=== PATIENT | female | born 1935 | race Caucasian/White ===

== ENCOUNTER 2018-02-03 07:45 | Emergency (ER) | payer MEDICARE, BC ==
[2018-02-03] MEDS ORDERED: 0.9 % SODIUM CHLORIDE 1,000 ML BAG IV ONE (07:52)
[2018-02-03] MEDS ORDERED: ACETAMINOPHEN 1,000 MG/100 ML BTL IVPB ONE (07:52)
[2018-02-03 08:03] LABS: BASO % 0.4 % (0-6); EOS % 0.2 % (0-6); GRAN % 64.8 % (47-80); HEMATOCRIT 38.4 % (35.0-47.0); HEMOGLOBIN 12.2 gm/dl (11.6-16.0); LYMPH % 24.9 % (16-45); MEAN CELL VOLUME 79.3 fl (81-97); MEAN CORPUSCULAR HEMOGLOBIN 25.2 pg (27-33); MEAN CORPUSCULAR HGB CONC 31.8 g/dl (32-36); MEAN PLATELET VOLUME 8.4 fl (7.4-10.4); MONO % 9.7 % (0-9); PLATELET COUNT 378 K/uL (130-400); RED BLOOD COUNT 4.84 M/uL (3.80-5.40); RED CELL DISTRIBUTION WIDTH 15.4 % (11.5-14.5); WHITE BLOOD COUNT W/O DIFF 8.2 K/uL (4.2-12.2)
--- NOTE | 2018-02-03 08:04 | Emergency Department Record ---
History of Present Illness - General Chief Complaint: Abdominal Pain Stated Complaint: RIGHT LOWER ABD PAIN Time Seen by Provider: 02/03/18 07:51 Source: Patient, Family Mode of Arrival: Ambulatory Limitations: No limitations - History of Present Illness Initial Comments: 83 yo female presents with right sided abdominal pain. The pain started on Saturday. The pain is sharp from the right flank, right upper abdomen to the right lower abdomen. It is not associated with any fever, chills, nausea, vomiting or diarrhea. No rash. No association with food. The pain comes and goes. There per periods of time over the weekend without any pain. The pain has been persistent this morning. She has had her appendix removed. No history of renal or gall stones. MD Complaint: Abdominal pain Onset/Timin -: Days(s) Location: R Flank, RLQ Radiation: Back Migration to: RUQ Severity: Moderate Severity scale (1-10): 8 Quality: Sharp Consistency: Intermittent Improves With: Nothing Worsens With: Nothing Associated Symptoms: Denies other symptoms - Related Data Home Medications Medication Instructions Recorded Confirmed Last Taken Aspirin 81 mg PO DAILY 02/03/18 02/03/18 Unknown Allergies Allergy/AdvReac Type Severity Reaction Status Date / Time No Known Allergies Allergy no Unverified 02/03/18 07:52 allergies Travel Screening - Travel/Exposure Within Last 30 Days Have you traveled within the last 30 days?: No Review of Systems Constitutional: Denies: Chills, Fever, Malaise Eyes: Denies: Vision change ENT: Denies: Congestion, Throat pain Respiratory: Denies: Cough, Dyspnea Cardiovascular: Denies: Chest pain Endocrine: Denies: Fatigue Gastrointestinal: Reports: Abdominal pain. Denies: Diarrhea, Nausea, Vomiting Genitourinary: Denies: Dysuria, Frequency, Hematuria, Urgency Musculoskeletal: Reports: Back pain. Denies: Arthralgia, Myalgia, Neck pain Skin: Denies: Bruising, Change in color, Rash Neurological: Denies: Headache Psychiatric: Denies: Anxiety Hematological/Lymphatic: Denies: Easy bleeding, Easy bruising Past Medical History - SOCIAL HISTORY Smoking Status: Former smoker Alcohol Use: None Drug Use: None - RESPIRATORY Hx Respiratory Disorders: No - CARDIOVASCULAR Hx Cardio Disorders: Yes Hx Heart Attack: Yes - NEURO Hx Neuro Disorders: No - GI Hx GI Disorders: No - Comment:: kidney infection - ENDOCRINE Hx Endocrine Disorders: No - MUSCULOSKELETAL Hx Musculoskeletal Disorders: No - PSYCH Hx Psych Problems: No - HEMATOLOGY/ONCOLOGY Hx Hematology/Oncology Disorders: No Family Medical History Any Significant Family History?: No Physical Exam - General General Appearance: Alert, Oriented x3, Cooperative, No acute distress Limitations: No limitations - Head Head exam: Atraumatic, Normal inspection - Eye Eye exam: Normal appearance - ENT ENT exam: Normal exam Ear exam: Normal external inspection Nasal Exam: Normal inspection Mouth exam: Normal external inspection - Neck Neck exam: Normal inspection - Respiratory Respiratory exam: Normal lung sounds bilaterally. negative: Respiratory distress - Cardiovascular Cardiovascular Exam: Regular rate, Normal rhythm, Normal heart sounds - GI/Abdominal GI/Abdominal exam: Soft, Normal bowel sounds, Tenderness (tender right flank, RUQ, RLQ but very soft abdomen, no rash). negative: Distended, Guarding, Hyperactive bowel sounds, Pulsatile mass, Rebound, Rigid - Rectal Rectal exam: Deferred - exam: Deferred - Extremities Extremities exam: Normal inspection, Full ROM, Normal capillary refill. negative: Pedal edema, Tenderness - Back Back exam: Reports: CVA tenderness (R), Full ROM (She has full ROM but some reproduced pain with movement.), Paraspinal tenderness. Denies: CVA tenderness (L) - Neurological Neurological exam: Alert, Normal gait, Oriented X3 - Psychiatric Psychiatric exam: Normal affect, Normal mood - Skin Skin exam: Dry, Intact, Normal color, Warm Course Vital Signs 02/03/18 07:48 Temperature 97.9 F Pulse Rate 95 H Respiratory 20 Rate Blood Pressure 155/88 Pulse Ox 96 - Reevaluation(s) Reevaluation #1: Vitals reviewed Well appearing 83 yo female with intermittent right side pain UA, Labs,and CT ordered. 02/03/18 08:03 02/03/18 08:12 The CBC was reviewed. No acute changes. No acute changes on the CMP,Lipase. 02/03/18 08:24 02/03/18 08:32 The EMR was reviewed. She has an ill defined RLL opacification that was present in 2013. This was initially seen on a CT of the abdomen then on a follow up chest CT. At that point she in discussion with her doctor decided not to pursue it further. She does not have a formal diagnosis. 02/03/18 08:46 The UA is negative. 02/03/18 08:51 No acute process in the abdomen. The chest mass from 4 years ago does appear to have progressed. The patient was informed. She had seen an oncologist in the past. A chest XR will be performed and her imaging placed on a disc for outpatient follow up of the right lung mass. 02/03/18 09:[address] Kay the patient's PCP. He will assist in the outpatient work up of the increased size of the right lower lung mass. Medical Decision Making - Lab Data Result diagrams: 02/03/18 07:55 02/03/18 07:55 Disposition Disposition: Discharge Clinical Impression: Mass of right lung Disposition: Home, Self-Care Condition: (1) Good Instructions: Abdominal Pain (ED) Additional Instructions: Call your doctor and your prior oncologist to follow up the right lung mass that has enlarged since 2013. The lung mass was again seen on today's CT of the abdomen and chest X-ray You were given a copy of the scans and x-rays on a disc. Take these with your to your follow up doctor's appointments Return or be seen if worse, fever, cough, vomiting, short of breath. Forms: Patient Portal Access Time of Disposition: 09:26 Quality - Quality Measures Quality Measures: N/A - Blood Pressure Screening Does Patient Have Any of the Following: Active Dx of HTN Blood Pressure Classification: Pre-Hypertensive BP Reading Systolic Measurement: 155 Diastolic Measurement: 88 Screening for High Blood Pressure: Patient Exclusion, Hx of HTN [G9744]
[2018-02-03 08:15] LABS: BLOOD UREA NITROGEN 10 mg/dL (8-23); CREATININE 0.5 mg/dL (0.5-0.9); EST GLOMERULAR FILTRATION RATE > 60 mL/min
[2018-02-03 08:16] LABS: TOTAL PROTEIN 7.5 g/dL (6.6-8.7)
[2018-02-03 08:18] LABS: GLUCOSE,RANDOM 103 mg/dL (74-109)
[2018-02-03 08:21] LABS: ALB/GLOB RATIO 0.9 (1.1-1.8); ALBUMIN 3.5 g/dL (4.0-5.0); ALKALINE PHOSPHATASE 75 U/L (35-104); ALT/SGPT 11 U/L (<33); AST/SGOT 16 U/L (10.0-35.0); LIPASE 32 U/L (13-60)
[2018-02-03 08:30] LABS: URINE APPEARANCE CLEAR; URINE BILIRUBIN NEGATIVE (NEGATIVE); URINE BLOOD NEGATIVE (NEGATIVE); URINE COLOR YELLOW; URINE GLUCOSE (UA) NEGATIVE (NEGATIVE); URINE KETONE NEGATIVE (NEGATIVE); URINE NITRITE NEGATIVE (NEGATIVE); URINE PROTEIN NEGATIVE (NEGATIVE); URINE UROBILINOGEN 0.2 E.U./dL (0.20 - 1.00)
[2018-02-03 08:39] LABS: URINE LEUKOCYTE ESTERASE TRACE (NEGATIVE); URINE RBC 0 - 2 (NONE SEEN); URINE TRANSITIONAL EPI CELLS 0 - 2 /hpf; URINE WBC 0 - 2 (0-2/hpf)
--- NOTE | 2018-02-03 13:58 | CT SCAN REPORT ---
EXAM: CT OF THE ABDOMEN AND PELVIS WITHOUT CONTRAST HISTORY: RIGHT FLANK, RIGHT UPPER QUADRANT AND RIGHT LOWER QUADRANT PAIN FOR THREE DAYS. PRIOR APPENDECTOMY. TECHNIQUE: Axial CT scan of the abdomen and pelvis was performed without oral or IV contrast. Comparison: CT of the abdomen and pelvis 03/11/14. FINDINGS: Upper images demonstrate extensive progression of opacification in the right lower lobe compared with that noted on 03/11/14. This opacification is nonspecific and poorly evaluated without IV contrast and also incompletely evaluated as it is present on the upper most scan obtained through the lung bases and presumably extends further cephalad in the chest. Follow-up conventional two view chest x-ray is suggested for initial further evaluation. Minor patch of infiltrate in the right middle lobe and some honeycombing in the left base also present previously. No calcified gallstones are seen within the gallbladder. No intrarenal calculi seen in either kidney. The patient is of thin body habitus with resulting lack of mesenteric and retroperitoneal adipose tissue with resulting "crowding" of the viscera in the abdomen and pelvis. This in conjunction with the lack of oral and IV contrast considerably limits evaluation of the bowel and viscera. The ureters are extremely poorly seen with no obvious obstructing ureteral calculus on either side identified. There is some coarse calcification associated with the uterus also present previously likely representing some mild leiomyomatous involvement. The 1.5 cm presumed hepatic cyst noted previously is again seen today and appears unchanged in size, incompletely evaluated without IV contrast today, but presumably a stable cyst. No definite solid hepatic mass identified. No definite splenic, adrenal, renal, or pancreatic mass identified. Fairly heavy calcification of the aortoiliac arterial system, but no abdominal aortic aneurysm evident. Moderate stool throughout the colon and clinical correlation as to constipation suggested. The appendix is not clearly seen consistent with the surgical history of appendectomy. Advanced degenerative change in the lumbar spine with moderate anterior subluxation of L4 on L5 which appears to be on the basis of extensive facet joint arthropathy. Mild anterior subluxation of L3 on L4 and of L2 on L3 also apparently on the basis os extensive facet joint arthropathy. There do appear to be a couple mildly enlarged lymph nodes adjacent to the right side of the heart on the upper images which have progressed from the prior study as well. These are nonspecific although metastatic disease cannot be excluded. IMPRESSION: 1. MARKED PROGRESSIVE OPACIFICATION IN THE VISUALIZED RIGHT LOWER LOBE COMPARED WITH 03/11/14. THIS IS NONSPECIFIC, BUT MALIGNANCY CANNOT BE EXCLUDED. FOLLOW-UP TWO VIEW CHEST X-RAY IS SUGGESTED. THERE DOES APPEAR TO BE SOME MILD ADENOPATHY ALONG THE RIGHT SIDE OF THE HEART WHICH HAS PROGRESSED FROM THE PRIOR STUDY WELL. 2. SOME HONEYCOMBING IN THE LEFT LUNG BASE, LIKELY WITH UNDERLYING COPD. 3. NO DEFINITE URINARY TRACT CALCULI OR HYDRONEPHROSIS EVIDENT. THERE IS A SOMEWHAT LOW LYING RIGHT KIDNEY LARGELY WITHIN THE PELVIS. 4. POSTOP APPENDECTOMY. 5. EXTENSIVE DEGENERATIVE CHANGES IN THE SPINE. 6. THIS STUDY IS SEVERE LIMITED BY A COMBINATION OF LACK OF ORAL AND IV CONTRAST AND THIN BODY HABITUS WITH LITTLE ADIPOSE TISSUE TO ACT A NATURAL CONTRAST AGENT. 7. STABLE SMALL HEPATIC CYST. 8. MODERATE STOOL THROUGHOUT THE COLON SUGGESTING CONSTIPATION. JOB NUMBER: [id number] [facility]
--- NOTE | 2018-02-03 14:18 | RADIOLOGY REPORT ---
EXAM: CHEST, TWO VIEWS HISTORY: CHEST MASS RIGHT LOWER LOBE ON ABDOMEN CT PERFORMED EARLIER TODAY, CHEST X-RAY REQUESTED TO MORE FULLY EVALUATE. TECHNIQUE: PA and lateral views of the chest were obtained. Comparison: Two view chest 06/28/17. FINDINGS: The heart size is normal. Mild torsion of the aorta. There has been progressive opacity in the right lower lobe compared to the prior chest x- ray. This corresponds to the quite prominent density in the right lower lobe on the abdomen CT from today. Findings are nonspecific, but with the progressive appearance, malignancy cannot be excluded. There appears to be a small right pleural fluid collection or pleural thickening in the right base today as well. The lungs overall appear hyperinflated consistent with underlying emphysema. Some apical pleural thickening bilaterally. Hypertrophic spurring in the spine. IMPRESSION: 1. PROGRESSIVE OPACITY IN THE RIGHT LOWER LOBE WORRISOME FOR PROGRESSIVE MALIGNANCY. 2. UNDERLYING COPD. 3. SMALL AMOUNT OF NEW RIGHT PLEURAL FLUID OR PLEURAL THICKENING AT THE RIGHT BASE WELL COMPARED WITH THE PRIOR STUDY. JOB NUMBER: [id number] [facility]
== END 2018-02-03 09:39 | disposition home or self-care (01) ==
LOC: ER 07:45
DX: R91.8 Other nonspecific abnormal finding of lung field (principal); R10.31 Right lower quadrant pain; R10.11 Right upper quadrant pain; I10 Essential (primary) hypertension; I25.2 Old myocardial infarction; Z87.891 Personal history of nicotine dependence
CPT/HCPCS: 71046; 74176; 80053; 81001; 83690; 85025; 96361; 96365; 99284; J7030

== ENCOUNTER 2018-02-05 07:07 | Observation (INO) | payer MEDICARE, BC ==
[2018-02-05] MEDS ORDERED: 0.9 % SODIUM CHLORIDE 1,000 ML BAG IV ONE (07:29)
[2018-02-05] MEDS ORDERED: ACETAMINOPHEN 1,000 MG/100 ML BTL IVPB ONE (07:44)
--- NOTE | 2018-02-05 07:55 | Emergency Department Record ---
History of Present Illness - General Chief complaint: Weakness Stated complaint: WEAKNESS Time Seen by Provider: 02/05/18 07:29 Source: Patient, RN notes reviewed Mode of Arrival: EMS - History of Present Illness Initial comments: patient fell down at home and granddaughter heard her fall and she was awake when she got to her and she was weak and patient denies headache and denies chest pain and dyspnea and she is complaining about right upper quad pain and right rib cage pain. Patient and family know about the lung mass and patient decided not to do cancer treatment about 10 years ago and she does not want resuscitation. MD Complaint: Generalized weakness -: Hour(s) Location: Generalized Severity scale (1-10): 9 Associated Symptoms: Nausea/vomiting - [place] Coma Scale Eye Response: (4) Open spontaneously Motor Response: (6) Obeys commands Verbal Response: (5) Oriented [place] Total: 15 - Related Data Allergies Allergy/AdvReac Type Severity Reaction Status Date / Time No Known Allergies Allergy no Verified 02/05/18 07:16 allergies Travel Screening - Travel/Exposure Within Last 30 Days Have you traveled within the last 30 days?: No - Travel Symptoms Symptom Screening: None Review of Systems Constitutional: Reports: Weakness Eyes: Reports: As per HPI. Denies: Eye discharge, Eye pain, Photophobia, Vision change ENT: Reports: As per HPI. Denies: Congestion, Dental pain, Ear pain, Epistaxis , Hearing loss, Throat pain Respiratory: Reports: As per HPI. Denies: Cough, Dyspnea, Hemoptysis, Stridor, Wheezes Cardiovascular: Reports: Other (chest pain right side) Endocrine: Reports: As per HPI. Denies: Fatigue, Heat or cold intolerance, Polydipsia, Polyuria Gastrointestinal: Reports: Abdominal pain Genitourinary: Reports: As per HPI. Denies: Abnormal menses, Discharge, Dyspareunia, Dysuria, Frequency, Hematuria, Incontinence, Retention, Urgency Musculoskeletal: Reports: As per HPI. Denies: Arthralgia, Back pain, Gout, Joint swelling, Myalgia, Neck pain Skin: Reports: As per HPI. Denies: Bruising, Change in color, Change in hair/ nails, Lesions, Pruritus, Rash Neurological: Reports: As per HPI. Denies: Abnormal gait, Confusion, Headache, Numbness, Paresthesias, Seizure, Tingling, Tremors, Vertigo, Weakness Psychiatric: Reports: As per HPI. Denies: Anxiety, Auditory hallucinations, Depression, Homicidal thoughts, Suicidal thoughts, Visual hallucinations Hematological/Lymphatic: Reports: As per HPI. Denies: Anemia, Blood Clots, Easy bleeding, Easy bruising, Swollen glands Past Medical History - SOCIAL HISTORY Smoking Status: Former smoker - RESPIRATORY Hx Respiratory Disorders: No - CARDIOVASCULAR Hx Cardio Disorders: Yes Hx Heart Attack: Yes - NEURO Hx Neuro Disorders: No - GI Hx GI Disorders: No - Hx Genitourinary Disorders: Yes Comment:: kidney infection - ENDOCRINE Hx Endocrine Disorders: No - MUSCULOSKELETAL Hx Musculoskeletal Disorders: No - PSYCH Hx Psych Problems: No - HEMATOLOGY/ONCOLOGY Hx Hematology/Oncology Disorders: No Family Medical History Any Significant Family History?: No Physical Exam - General General Appearance: Cooperative, Moderate distress - Head Head exam: Normal inspection - Eye Eye exam: Normal appearance, PERRL - ENT ENT exam: Normal exam, Mucous membranes moist, Normal external ear exam, Normal orophraynx, TM's normal bilaterally Ear exam: Normal external inspection. negative: External canal tenderness Nasal Exam: Normal inspection. negative: Discharge, Sinus tenderness Mouth exam: Normal external inspection, Tongue normal Teeth exam: Normal inspection. negative: Dental caries Throat exam: Normal inspection. negative: Tonsillar erythema, Tonsillar exudate - Neck Neck exam: Normal inspection, Full ROM. negative: Tenderness - Respiratory Respiratory exam: Normal lung sounds bilaterally. negative: Respiratory distress - Cardiovascular Cardiovascular Exam: Regular rate, Normal rhythm, Normal heart sounds - GI/Abdominal GI/Abdominal exam: Tenderness (right upper quad pain ) - Extremities Extremities exam: Normal inspection, Full ROM, Normal capillary refill. negative: Tenderness - Back Back exam: Reports: Normal inspection, Full ROM. 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 02/05/18 10:43 08/08/18 11:11 Reevaluation #2: family didn't want me to do the inpatient care and Dr. Jose contacted and he came and evaluated the patient and will admit the patient. Discussed hospise care and patient and family thinking about options. 02/05/18 11:54 02/05/18 11:57 Medical Decision Making - Lab Data Result diagrams: 02/05/18 07:40 02/05/18 07:40 Disposition Clinical Impression: Mass of right lung, Dehydration Hypotension Qualifiers: Hypotension type: hypotension due to hypovolemia Qualified Code(s): I95.89 - Other hypotension GI bleed Qualifiers: GI bleed type/associated pathology: unspecified gastrointestinal hemorrhage type Qualified Code(s): K92.2 - Gastrointestinal hemorrhage, unspecified Decision to Admit: Admit from ER Condition: (4) Poor Forms: Patient Portal Access Time of Disposition: 11:54 Quality - Quality Measures Quality Measures: N/A - Blood Pressure Screening Does Patient Have Any of the Following: No Blood Pressure Classification: Normal BP Reading Systolic Measurement: 74 Diastolic Measurement: 51 Screening for High Blood Pressure: < Normal BP, F/U Not Required > [G8783]
[2018-02-05 07:56] LABS: BASO % 0.2 % (0-6); EOS % 0.3 % (0-6); GRAN % 69.4 % (47-80); HEMATOCRIT 49.8 % (35.0-47.0); HEMOGLOBIN 16.5 gm/dl (11.6-16.0); LYMPH % 27.3 % (16-45); MEAN CELL VOLUME 77.3 fl (81-97); MEAN CORPUSCULAR HEMOGLOBIN 25.6 pg (27-33); MEAN CORPUSCULAR HGB CONC 33.1 g/dl (32-36); MEAN PLATELET VOLUME 9.8 fl (7.4-10.4); MONO % 2.8 % (0-9); PLATELET COUNT 401 K/uL (130-400); RED BLOOD COUNT 6.44 M/uL (3.80-5.40); RED CELL DISTRIBUTION WIDTH 17.6 % (11.5-14.5); WHITE BLOOD COUNT W/O DIFF 14.4 K/uL (4.2-12.2)
[2018-02-05 08:06] LABS: INR 1.1; PARTIAL THROMBOPLASTIN TIME 22.9 SECONDS (24.5-39.1); PROTHROMBIN TIME (PATIENT) 11.9 SECONDS (9.5-12.1)
[2018-02-05 09:43] LABS: BLOOD UREA NITROGEN 14 mg/dL (8-23); EST GLOMERULAR FILTRATION RATE 56 mL/min; TOTAL PROTEIN 6.4 g/dL (6.6-8.7)
[2018-02-05 09:45] LABS: GLUCOSE,RANDOM 200 mg/dL (74-109)
[2018-02-05 09:48] LABS: ALB/GLOB RATIO 0.7 (1.1-1.8); ALBUMIN 2.7 g/dL (4.0-5.0); ALKALINE PHOSPHATASE 75 U/L (35-104); ALT/SGPT 15 U/L (<33); AST/SGOT 34 U/L (10.0-35.0); LIPASE 96 U/L (13-60)
[2018-02-05 10:23] LABS: URINE APPEARANCE SL CLOUDY; URINE BILIRUBIN MODERATE (NEGATIVE); URINE BLOOD TRACE-I (NEGATIVE); URINE KETONE TRACE (NEGATIVE); URINE LEUKOCYTE ESTERASE TRACE (NEGATIVE)
[2018-02-05 10:40] LABS: URINE COLOR DARK YELLOW; URINE NITRITE NEGATIVE (NEGATIVE); URINE PROTEIN 300 mg/dL (NEGATIVE)
[2018-02-05 10:41] LABS: URINE BACTERIA FEW; URINE RBC 0 - 2 (NONE SEEN); URINE SQUAMOUS EPITHELIAL CELL 0 - 2 /hpf; URINE WBC 0 - 2 (0-2/hpf)
[2018-02-05] MEDS ORDERED: 0.9 % SODIUM CHLORIDE 500ML 500 ML IV SCH (10:45)
[2018-02-05] MEDS ORDERED: PANTOPRAZOLE SODIUM IV 40 MG VIAL IVP ONE (11:53)
[2018-02-05] MEDS ORDERED: PANTOPRAZOLE SODIUM IV 40 MG VIAL IVP SCH (12:15)
[2018-02-05] MEDS: MVI, ADULT NO.4 WITH VIT K 10 ML, THIAMINE HCL IV 100 MG in 0.9 % SODIUM CHLORIDE 1000M... IV SCH ×6 (12:36→21:01)
--- NOTE | 2018-02-05 13:03 | History & Physical ---
<Darren Pope - Last Filed: 02/05/18 13:51> History of Present Illness - Date of Service Date of Service for History & Physical: 02/05/18 H&P Meds/Allergies - Allergies Allergies: Allergies Allergy/AdvReac Type Severity Reaction Status Date / Time No Known Allergies Allergy no Verified 02/05/18 07:16 allergies - Active Medications Active Medications: Current Medications Sodium Chloride () 500 mls @ 0 mls/hr IV .Q0M [facility] Multivitamins/Minerals 10 ml/Thiamine HCl 100 mg/ Sodium Chloride 1,011 mls @ 125 mls/hr IV .Q8H6M [facility] Last Admin: 02/05/18 12:36 Dose: 125 mls/hr Pantoprazole Sodium (Protonix Iv) 40 mg IVP Q12HR [facility] Physical Exam - Vital Signs Vital Signs: Vital Signs - Last 24 Hrs Temp Pulse Pulse Resp BP BP Pulse Ox 02/05/18 11:50 92 H 18 101/70 98 02/05/18 11:42 90 20 98/64 98 02/05/18 11:20 91 H 18 106/69 97 02/05/18 10:50 84 18 100/60 97 02/05/18 10:30 78 18 96/65 98 02/05/18 10:10 79 18 108/57 98 02/05/18 07:18 97.2 F L 106 H 102 H 24 74/51 86/48 96 Results - Labs Result Diagrams: 02/05/18 07:40 02/05/18 07:40 Labs Last 24 Hours: Laboratory Results - last 24 hr 02/05/18 02/05/18 02/05/18 07:40 07:40 07:40 WBC 14.4 H RBC 6.44 H Hgb 16.5 H Hct 49.8 H MCV 77.3 L MCH 25.6 L MCHC 33.1 RDW 17.6 H Plt Count 401 H MPV 9.8 Gran % 69.4 Lymphocytes % 27.3 Monocytes % 2.8 Eosinophils % 0.3 Basophils % 0.2 PT 11.9 INR 1.1 APTT 22.9 L Sodium 137 Potassium 3.5 Chloride 100 Carbon Dioxide 17.0 L Anion Gap 20.0 H BUN 14 Creatinine 1.0 H Estimated GFR 56 Random Glucose 200 H Calcium 8.7 L Magnesium Total Bilirubin 0.60 AST 34 ALT 15 Alkaline Phosphatase 75 Troponin T < 0.010 Total Protein 6.4 L Albumin 2.7 L Globulin 3.7 Albumin/Globulin Ratio 0.7 L Lipase 96 H Urine Color Urine Appearance Urine pH Ur Specific Felicity Urine Protein Urine Glucose (UA) Urine Ketones Urine Blood Urine Nitrite Urine Bilirubin Urine Urobilinogen Ur Leukocyte Esterase Urine RBC Urine WBC U Non-Squamous Epi Cells Urine Bacteria 02/05/18 02/05/18 02/05/18 07:40 07:40 10:15 WBC RBC Hgb Hct MCV MCH MCHC RDW Plt Count MPV Gran % Lymphocytes % Monocytes % Eosinophils % Basophils % PT INR APTT Sodium Potassium Chloride Carbon Dioxide Anion Gap BUN Creatinine Estimated GFR Random Glucose Calcium Magnesium 2.4 Total Bilirubin AST ALT Alkaline Phosphatase Troponin T Cancelled Total Protein Albumin Globulin Albumin/Globulin Ratio Lipase Urine Color Dark yellow Urine Appearance Sl cloudy Urine pH 6.5 Ur Specific Felicity 1.020 Urine Protein 300 mg/dl H Urine Glucose (UA) 100 mg/dl H Urine Ketones Trace H Urine Blood Trace-i Urine Nitrite Negative Urine Bilirubin Moderate H Urine Urobilinogen 2.0 H Ur Leukocyte Esterase Trace H Urine RBC 0 - 2 Urine WBC 0 - 2 U Non-Squamous Epi Cells 0 - 2 Urine Bacteria Few <MAROLN HENRY - Last Filed: 02/05/18 17:06> History of Present Illness - Date of Service Date of Service for History & Physical: 02/05/18 - History of Present Illness Admitting Diagnosis: Hypotension History of Present Illness: Mrs. Saini is a 83 y/o female who presents after falling at home. She says that she felt weak and unable to stand but denies dizziness, feeling lightheaded and or losing consciousness. The patient's grand daughter heard the fall and went to see what happened and notes that the patient was on the floor in pain but was awake and alert. She denies witnessing any convulsions and there was no loss of urinary or bowel continence. The patient did not report any injury to her head but notes right abdominal and rib cage pain. In the ED the patient was started on IV 0.9% saline for dehydration and her blood pressure rebounded. The patient is a wake, alert and oriented x 3 does not appear to be in acute distress. She is admitted for observation and home health placement or hospice if appropriate. On arrival to the ED initial workup revealed: Vitals: BP 74/51, HR 102, sats: 96%, Temp 97.2 Labs: K+ 3.5, Glucose 200, WBCs 14.4 FOBT: + for occult blood CXR: RLL opacification which has progressed from previous imaging. CT thorax: shows a RLL mass suspicious for malignancy and small pleural effusion. PCP: Dr. Kay Travel Screening - Travel/Exposure Within Last 30 Days Have you traveled within the last 30 days?: No - Travel Symptoms Symptom Screening: None Review of Systems Constitutional: Reports: Weakness Eyes: Reports: As per HPI. Denies: Eye discharge, Eye pain, Photophobia, Vision change ENT: Reports: As per HPI. Denies: Congestion, Dental pain, Ear pain, Epistaxis , Hearing loss, Throat pain Respiratory: Reports: As per HPI. Denies: Cough, Dyspnea, Hemoptysis, Stridor, Wheezes Cardiovascular: Reports: Other (chest pain right side) Endocrine: Reports: As per HPI. Denies: Fatigue, Heat or cold intolerance, Polydipsia, Polyuria Gastrointestinal: Reports: Abdominal pain Genitourinary: Reports: As per HPI. Denies: Abnormal menses, Discharge, Dyspareunia, Dysuria, Frequency, Hematuria, Incontinence, Retention, Urgency Musculoskeletal: Reports: As per HPI. Denies: Arthralgia, Back pain, Gout, Joint swelling, Myalgia, Neck pain Skin: Reports: As per HPI. Denies: Bruising, Change in color, Change in hair/ nails, Lesions, Pruritus, Rash Neurological: Reports: As per HPI. Denies: Abnormal gait, Confusion, Headache, Numbness, Paresthesias, Seizure, Tingling, Tremors, Vertigo, Weakness Psychiatric: Reports: As per HPI. Denies: Anxiety, Auditory hallucinations, Depression, Homicidal thoughts, Suicidal thoughts, Visual hallucinations Hematological/Lymphatic: Reports: As per HPI. Denies: Anemia, Blood Clots, Easy bleeding, Easy bruising, Swollen glands Past Medical History - SOCIAL HISTORY Smoking Status: Former smoker - RESPIRATORY Hx Respiratory Disorders: No - CARDIOVASCULAR Hx Cardio Disorders: Yes Hx Heart Attack: Yes - NEURO Hx Neuro Disorders: No - GI Hx GI Disorders: No - Hx Genitourinary Disorders: Yes Comment:: kidney infection - ENDOCRINE Hx Endocrine Disorders: No - MUSCULOSKELETAL Hx Musculoskeletal Disorders: No - PSYCH Hx Psych Problems: No - HEMATOLOGY/ONCOLOGY Hx Hematology/Oncology Disorders: No Family Medical History Any Significant Family History?: No H&P Meds/Allergies - Active Medications Active Medications: Current Medications Sodium Chloride () 500 mls @ 0 mls/hr IV .Q0M [facility] Multivitamins/Minerals 10 ml/Thiamine HCl 100 mg/ Sodium Chloride 1,011 mls @ 125 mls/hr IV .Q8H6M [facility] Last Admin: 02/05/18 12:36 Dose: 125 mls/hr Pantoprazole Sodium (Protonix Iv) 40 mg IVP Q12HR [facility] Physical Exam - Vital Signs Vital Signs: Vital Signs - Last 24 Hrs Temp Pulse Pulse Resp BP BP Pulse Ox 02/05/18 11:50 92 H 18 101/70 98 02/05/18 11:42 90 20 98/64 98 02/05/18 11:20 91 H 18 106/69 97 02/05/18 10:50 84 18 100/60 97 02/05/18 10:30 78 18 96/65 98 02/05/18 10:10 79 18 108/57 98 02/05/18 07:18 97.2 F L 106 H 102 H 24 74/51 86/48 96 - General General Appearance: Cooperative, Moderate distress - Head Head exam: Normal inspection - Eye Eye exam: Normal appearance, PERRL - ENT ENT exam: Normal exam, Mucous membranes moist, Normal external ear exam, Normal orophraynx, TM's normal bilaterally Ear exam: Normal external inspection. negative: External canal tenderness Nasal Exam: Normal inspection. negative: Discharge, Sinus tenderness Mouth exam: Normal external inspection, Tongue normal Teeth exam: Normal inspection. negative: Dental caries Throat exam: Normal inspection. negative: Tonsillar erythema, Tonsillar exudate - Neck Neck exam: Normal inspection, Full ROM. negative: Tenderness - Respiratory Respiratory exam: Normal lung sounds bilaterally. negative: Respiratory distress - Cardiovascular Cardiovascular Exam: Regular rate, Normal rhythm, Normal heart sounds - GI/Abdominal GI/Abdominal exam: Tenderness (right upper quad pain ) - Extremities Extremities exam: Normal inspection, Full ROM, Normal capillary refill. negative: Tenderness - Back Back exam: Reports: Normal inspection, Full ROM. Denies: Muscle spasm, Rash noted, Tenderness - Neurological Neurological exam: Alert, Normal gait, Oriented X3, Reflexes normal - Psychiatric Psychiatric exam: Normal affect, Normal mood - Skin Skin exam: Dry, Intact, Normal color, Warm Results - Labs Result Diagrams: 02/05/18 07:40 02/05/18 07:40 Labs Last 24 Hours: Laboratory Results - last 24 hr 02/05/18 02/05/18 02/05/18 07:40 07:40 07:40 WBC 14.4 H RBC 6.44 H Hgb 16.5 H Hct 49.8 H MCV 77.3 L MCH 25.6 L MCHC 33.1 RDW 17.6 H Plt Count 401 H MPV 9.8 Gran % 69.4 Lymphocytes % 27.3 Monocytes % 2.8 Eosinophils % 0.3 Basophils % 0.2 PT 11.9 INR 1.1 APTT 22.9 L Sodium 137 Potassium 3.5 Chloride 100 Carbon Dioxide 17.0 L Anion Gap 20.0 H BUN 14 Creatinine 1.0 H Estimated GFR 56 Random Glucose 200 H Calcium 8.7 L Magnesium Total Bilirubin 0.60 AST 34 ALT 15 Alkaline Phosphatase 75 Troponin T < 0.010 Total Protein 6.4 L Albumin 2.7 L Globulin 3.7 Albumin/Globulin Ratio 0.7 L Lipase 96 H Urine Color Urine Appearance Urine pH Ur Specific Felicity Urine Protein Urine Glucose (UA) Urine Ketones Urine Blood Urine Nitrite Urine Bilirubin Urine Urobilinogen Ur Leukocyte Esterase Urine RBC Urine WBC U Non-Squamous Epi Cells Urine Bacteria 02/05/18 02/05/18 02/05/18 07:40 07:40 10:15 WBC RBC Hgb Hct MCV MCH MCHC RDW Plt Count MPV Gran % Lymphocytes % Monocytes % Eosinophils % Basophils % PT INR APTT Sodium Potassium Chloride Carbon Dioxide Anion Gap BUN Creatinine Estimated GFR Random Glucose Calcium Magnesium 2.4 Total Bilirubin AST ALT Alkaline Phosphatase Troponin T Cancelled Total Protein Albumin Globulin Albumin/Globulin Ratio Lipase Urine Color Dark yellow Urine Appearance Sl cloudy Urine pH 6.5 Ur Specific Felicity 1.020 Urine Protein 300 mg/dl H Urine Glucose (UA) 100 mg/dl H Urine Ketones Trace H Urine Blood Trace-i Urine Nitrite Negative Urine Bilirubin Moderate H Urine Urobilinogen 2.0 H Ur Leukocyte Esterase Trace H Urine RBC 0 - 2 Urine WBC 0 - 2 U Non-Squamous Epi Cells 0 - 2 Urine Bacteria Few VTE H&P Assessment - Risk for VTE Risk for VTE: Yes Risk Level: Moderate Risk Assessment Date: 02/05/18 Risk Assessment Time: 13:05 VTE Orders Placed or Will Be Placed: Yes Plan - Detailed Diagnosis and Plan (1) Dehydration Current Visit: Yes Status: Acute Base Code: E86.0 - DEHYDRATION Comment: 02/05/18: - 2 liters bolus Nacl 0.9% in ED. - continuous fluids at 80 mL/hr, - repeat electrolytes in the morning. (2) Hypotension Current Visit: Yes Status: Acute Qualifiers: Hypotension type: hypotension due to hypovolemia Qualified Code(s): I95.89 - Other hypotension; E86.1 - Hypovolemia Base Code: I95.9 - HYPOTENSION, UNSPECIFIED Comment: 02/05/18: - BP 98/64 --> 101/70 --> 127/69 - hold Metoprol 25mg and Fosinopril 10mg. - continuous bp monitoring. - IV 0.9% Nacl @ 80 mL/hr (3) Mass of right lung Current Visit: Yes Status: Acute Base Code: R91.8 - OTHER NONSPECIFIC ABNORMAL FINDING OF LUNG FIELD Comment: 02/05/18: - CXR: RLL mass increased in size from previous imaging. - CT chest w/o contrast: RLL mass and small plerural effusion. - Morphine 0.5mg Q4H PRN for pain. - Patient does not want any further workup or intervention. Hospice being considered. - following for home health assessment. (4) GI bleed Current Visit: Yes Status: Acute Qualifiers: GI bleed type/associated pathology: unspecified gastrointestinal hemorrhage type Qualified Code(s): K92.2 - Gastrointestinal hemorrhage, unspecified Base Code: K92.2 - GASTROINTESTINAL HEMORRHAGE, UNSPECIFIED Comment: 02/05/18: - FOBT + for occult blood. - Hgb 14.4gm/dL - Repeat H+H with morning labs. (5) DVT prophylaxis Current Visit: Yes Status: Acute Base Code: [id number] - Comment: 02/05/18: - SCDs only, ambulate as tolerated. - no pharmacologic prophylaxis due to concern for GI bleed. (6) DNR (do not resuscitate) Current Visit: Yes Status: Acute Base Code: Z66 - DO NOT RESUSCITATE Comment: 02/05/18: - Discussed with the patient and her family and she has decided to not be resuscitated in the event of cardiac/respiratory arrest. - Disposition Likely d/c tomorrow pending home health.
[2018-02-05] MEDS ORDERED: 0.9 % SODIUM CHLORIDE 1000ML 1,000 ML IV PRN ×2 (15:19→15:40)
[2018-02-05] MEDS ORDERED: ONDANSETRON HCL IV 4 MG/2 ML VIAL IVP PRN (15:19)
[2018-02-05] MEDS ORDERED: MORPHINE SULFATE 10 MG/ML VIAL IVP PRN (16:26)
[2018-02-05] MEDS: ACETAMINOPHEN 325 MG TAB PO PRN (17:30)
[2018-02-05] MEDS: PANTOPRAZOLE SODIUM IV 40 MG VIAL IVP SCH (21:37)
[2018-02-06] MEDS: MVI, ADULT NO.4 WITH VIT K 10 ML, THIAMINE HCL IV 100 MG in 0.9 % SODIUM CHLORIDE 1000M... IV SCH ×3 (05:57)
[2018-02-06 09:03] LABS: HEMATOCRIT 38.7 % (35.0-47.0)
--- NOTE | 2018-02-06 10:22 | Discharge Summary ---
Providers Discharge Summary Date: 02/06/18 Date of admission: 02/05/18 14:35 Attending physician: MARLON JOSE Consults: Consult Orders 02/05/18 23:19 Consult - Case Management Now Comment: Reason For Exam: possible hospice Physical Exam - Vital Signs Vital Signs: Vital Signs - Last 24 Hrs Temp Pulse Pulse Pulse Resp BP BP 02/05/18 21:00 18 02/05/18 20:00 98.3 F 88 16 108/59 02/05/18 18:00 97.0 F L 79 18 114/66 02/05/18 15:20 97.4 F L 93 H 18 93/65 02/05/18 14:42 82 18 127/69 02/05/18 11:50 92 H 18 101/70 02/05/18 11:42 90 20 98/64 02/05/18 11:20 91 H 18 106/69 02/05/18 10:50 84 18 100/60 02/05/18 10:30 78 18 96/65 Pulse Ox 02/05/18 21:00 02/05/18 20:00 98 02/05/18 18:00 98 02/05/18 15:20 98 02/05/18 14:42 98 02/05/18 11:50 98 02/05/18 11:42 98 02/05/18 11:20 97 02/05/18 10:50 97 02/05/18 10:30 98 - General General Appearance: Cooperative, Moderate distress - Head Head exam: Normal inspection - Eye Eye exam: Normal appearance, PERRL - ENT ENT exam: Normal exam, Mucous membranes moist, Normal external ear exam, Normal orophraynx, TM's normal bilaterally Ear exam: Normal external inspection. negative: External canal tenderness Nasal Exam: Normal inspection. negative: Discharge, Sinus tenderness Mouth exam: Normal external inspection, Tongue normal Teeth exam: Normal inspection. negative: Dental caries Throat exam: Normal inspection. negative: Tonsillar erythema, Tonsillar exudate - Neck Neck exam: Normal inspection, Full ROM. negative: Tenderness - Respiratory Respiratory exam: Normal lung sounds bilaterally. negative: Respiratory distress - Cardiovascular Cardiovascular Exam: Regular rate, Normal rhythm, Normal heart sounds Peripheral Pulses: 3+: Radial (R), Radial (L), Dorsalis Pedis (R), Dorsalis Pedis (L) - GI/Abdominal GI/Abdominal exam: Soft, Normal bowel sounds, Tenderness (right upper quad pain ) - Extremities Extremities exam: Normal inspection, Full ROM, Normal capillary refill. negative: Tenderness - Back Back exam: Reports: Normal inspection, Full ROM. Denies: Muscle spasm, Rash noted, Tenderness - Neurological Neurological exam: Alert, Normal gait, Oriented X3, Reflexes normal - Psychiatric Psychiatric exam: Normal affect, Normal mood - Skin Skin exam: Dry, Intact, Normal color, Warm Hospitalization - Hospitalization Admission Diagnosis: Hypotension - Problem List/Discharge Diagnosis (1) Dehydration Current Visit: Yes Status: Acute Base Code: E86.0 - DEHYDRATION Comment: 02/06/18: - 2 liters bolus Nacl 0.9% in ED. - d/c fluids at 80 mL/hr, - kyperkalemia 4.6 and hypocalcemia 8.4. (2) Hypotension Current Visit: Yes Status: Acute Discharge Diagnosis: Hypotension type: hypotension due to hypovolemia Qualified Code(s): I95.89 - Other hypotension; E86.1 - Hypovolemia Base Code: I95.9 - HYPOTENSION, UNSPECIFIED Comment: 02/05/18 - 02/06/18 - BP 98/64 --> 101/70 --> 127/69--> 114/66--> 108/89 - d/c Metoprol 25mg and Fosinopril 10mg at discharge - continuous bp monitoring. - stop IV 0.9% Nacl @ 80 mL/hr (3) Mass of right lung Current Visit: Yes Status: Acute Base Code: R91.8 - OTHER NONSPECIFIC ABNORMAL FINDING OF LUNG FIELD Comment: 02/06/18: - CXR: RLL mass increased in size from previous imaging. - CT chest w/o contrast: RLL mass and small plerural effusion. - Morphine 0.5mg Q4H PRN for pain. Change to PO Austin PRN at discharge. - Patient does not want any further workup or intervention. Hospice being considered. - following for home health assessment. (4) GI bleed Current Visit: Yes Status: Acute Discharge Diagnosis: GI bleed type/associated pathology: unspecified gastrointestinal hemorrhage type Qualified Code(s): K92.2 - Gastrointestinal hemorrhage, unspecified Base Code: K92.2 - GASTROINTESTINAL HEMORRHAGE, UNSPECIFIED Comment: 02/06/18: - FOBT + for occult blood on admission. - Hgb 16.4gm/dL --> 12 today - Repeat H+H with morning labs on clinic visit next week. (5) DVT prophylaxis Current Visit: Yes Status: Acute Base Code: [id number] - Comment: 02/06/18: - SCDs only, ambulate as tolerated. - no pharmacologic prophylaxis due to concern for GI bleed. (6) DNR (do not resuscitate) Current Visit: Yes Status: Acute Base Code: Z66 - DO NOT RESUSCITATE Comment: 02/06/18: - Discussed with the patient and her family and she has decided to not be resuscitated in the event of cardiac/respiratory arrest. - Disposition D/C home today with home health care. - Hospitalization Course Hospital Course: Mrs. Saini is a 83 y/o female who presents after falling at home. She says that she felt weak and unable to stand but denies dizziness, feeling lightheaded and or losing consciousness. The patient's grand daughter heard the fall and went to see what happened and notes that the patient was on the floor in pain but was awake and alert. She denies witnessing any convulsions and there was no loss of urinary or bowel continence. The patient did not report any injury to her head but notes right abdominal and rib cage pain. In the ED the patient was started on IV 0.9% saline for dehydration and her blood pressure rebounded. The patient is a wake, alert and oriented x 3 does not appear to be in acute distress. She is admitted for observation and home health placement or hospice if appropriate. On arrival to the ED initial workup revealed: Vitals: BP 74/51, HR 102, sats: 96%, Temp 97.2 Labs: K+ 3.5, Glucose 200, WBCs 14.4 FOBT: + for occult blood CXR: RLL opacification which has progressed from previous imaging. CT thorax: shows a RLL mass suspicious for malignancy and small pleural effusion. PCP: Dr. Kay 02/06/18: The patient is alert, awake and oriented. She reports having a good nights rest and having very minimal pain. The patient has been able to ambulate to the rest room without assistance and denies lightheadedness, or shortness of breath. She does report a bloody bowel movement overnight but no abdominal pain. I had further discussions with her family this morning regarding home health and transition to hospice care. They are agreeable to home health and Social Work has been speaking to the family about plans once she is discharged. She is discharged and is opting to continue care with [facility]. Procedures: Imaging and X-Rays 02/05/18 07:37 ABDOMEN/PELVIS WO CONTRAST [CT] Stat 02/05/18 07:52 CHEST WO CONTRAST [CT] Stat Abnormal Labs: Abnormal Lab Results 02/05/18 02/05/18 02/05/18 Range/Units 07:40 07:40 07:40 WBC 14.4 H (4.2-12.2) K/uL RBC 6.44 H (3.80-5.40) M/uL Hgb 16.5 H (11.6-16.0) gm/dl Hct 49.8 H (35.0-47.0) % MCV 77.3 L (81-97) fl MCH 25.6 L (27-33) pg RDW 17.6 H (11.5-14.5) % Plt Count 401 H (130-400) K/uL APTT 22.9 L (24.5-39.1) SECONDS Potassium (3.4-4.5) mmol/L Carbon Dioxide 17.0 L (22-29) mmol/L Anion Gap 20.0 H (7-16) Creatinine 1.0 H (0.5-0.9) mg/dL Random Glucose 200 H (74-109) mg/dL Calcium 8.7 L (8.8-10.2) mg/dL Total Protein 6.4 L (6.6-8.7) g/dL Albumin 2.7 L (4.0-5.0) g/dL Albumin/Globulin Ratio 0.7 L (1.1-1.8) Lipase 96 H (13-60) U/L Urine Protein (NEGATIVE) Urine Glucose (UA) (NEGATIVE) Urine Ketones (NEGATIVE) Urine Bilirubin (NEGATIVE) Urine Urobilinogen (0.20 - 1.00) E.U./dL Ur Leukocyte Esterase (NEGATIVE) 02/05/18 02/06/18 Range/Units 10:15 06:23 WBC (4.2-12.2) K/uL RBC (3.80-5.40) M/uL Hgb (11.6-16.0) gm/dl Hct (35.0-47.0) % MCV (81-97) fl MCH (27-33) pg RDW (11.5-14.5) % Plt Count (130-400) K/uL APTT (24.5-39.1) SECONDS Potassium 4.6 H (3.4-4.5) mmol/L Carbon Dioxide (22-29) mmol/L Anion Gap (7-16) Creatinine 1.0 H (0.5-0.9) mg/dL Random Glucose 116 H (74-109) mg/dL Calcium 8.6 L (8.8-10.2) mg/dL Total Protein (6.6-8.7) g/dL Albumin (4.0-5.0) g/dL Albumin/Globulin Ratio (1.1-1.8) Lipase (13-60) U/L Urine Protein 300 mg/dl H (NEGATIVE) Urine Glucose (UA) 100 mg/dl H (NEGATIVE) Urine Ketones Trace H (NEGATIVE) Urine Bilirubin Moderate H (NEGATIVE) Urine Urobilinogen 2.0 H (0.20 - 1.00) E.U./dL Ur Leukocyte Esterase Trace H (NEGATIVE) Condition at Discharge: (4) Poor Discharge Medications - Discharge Medications Prescriptions: Acetaminophen [Tylenol 8 Hour] 650 mg PO Q8H PRN #30 tablet.er PRN Reason: Abdominal Pain Hydrocodone/APAP 5/325Mg [[place] 5Mg/325Mg] 1 each PO Q6H PRN #10 tab PRN Reason: Pain - Mild To Moderate (1-7) Ondansetron HCl [Zofran] 4 mg PO Q4H PRN #30 tablet PRN Reason: Nausea/Vomiting Pantoprazole Sodium [Protonix] 40 mg PO DAILY 30 Days #30 tablet.dr Home Medications: Ambulatory Orders Acetaminophen [Tylenol 8 Hour] 650 mg PO Q8H PRN #30 tablet.er 02/06/18 [Last Taken Unknown] Hydrocodone/APAP 5/325Mg [[place] 5Mg/325Mg] 1 each PO Q6H PRN #10 tab 02/06/18 [ Last Taken Unknown] Ondansetron HCl [Zofran] 4 mg PO Q4H PRN #30 tablet 02/06/18 [Last Taken Unknown ] Pantoprazole Sodium [Protonix] 40 mg PO DAILY 30 Days #30 tablet. 02/06/18 [ Last Taken Unknown] Discharge Plan - Discharge Instructions Activity at Discharge: Resume Usual Activities As Tolerated Diet at Discharge: Regular Diet Instructions: Hypotension (DC) Additional Instructions: Post-hospital discharge with Dr. Jose within 1-2 weeks. Labs will be ordered for you to do next week before being seen in the office. Do not take your blood pressure medications. Four medications have been prescribed for you. Please take them as prescribed. Tylenol 650mg every 8hrs as needed. [place] 5mg/325mg every six hours as needed for pain control. Zofran 4 mg every 4 hours if needed for nausea/vomiting Protonix 40mg daily Please have all records sent from Dr. Kay's office to establish care at [facility] clinic. Quality Measures - Quality Measures Quality Measures: Advance Directives, Documentation of Current Medications in Medical Record, Elder Maltreatment Screen and Follow-Up Plan, Screening for High Blood Pressure and F/U Documented - Current Medications Quality Measure: Measure #130: Documentation of Current Medications Documentation of Current Medications: <Current Medications Documented/Reviewed> [[id number]] - Blood Pressure Screening Quality Measure: Screening for High Blood Pressure and Follow-Up Documented Does Patient Have Any of the Following: No Blood Pressure Classification: Pre-Hypertensive BP Reading Systolic Measurement: 127 Diastolic Measurement: 69 Screening for High Blood Pressure: < Pre-Hypertensive BP, F/U Documented > [ [id number]] Pre-Hypertensive Follow-up Interventions: Follow-up with rescreen every year., Lifestyle modifications. Lifestyle Modification: Dietary Approaches to Stop Hypertension (DASH) Eating Plan - Advance Directives Quality Measure: Measure #47: Care Plan Advance Directives Established: No Advance Directives Information Provided To Patient: No Advance Directives on File: No Living Will: No Power of Tie Layer: Yes (pt's family will update) Advance Care Planning: <Care Plan/Decision Maker Documented; Discussed & Documented> [[id number]] - Elder Abuse Suspicion Index Screening: Elder Abuse Suspicion Index Screening Rely on people for bathing, dressing, shopping, banking, etc: No Prevented from getting food, clothes, medication, etc: No Made to feel shamed or threatened by someone: No Forced to sign papers or use money against will: No Feel afraid, touched in ways not wanted or hurt physically: No Poor eye contact, withdrawn, malnourished, cuts or bruises: No Screening Result: Negative result EASI Reference Information: Alexandre NAVARRO, Haris Osuna, Shania Zhou, Scottie Jameson.Development and validation of a tool to assist physicians identification of elder abuse: The Elder Abuse Suspicion Index (EASI ). Journal of Elder Abuse and Neglect, 2008; 20 (3): 276-300. - Elder Maltreatment Screen Quality Measures: Elder Maltreatment Screen and Follow-Up Plan Elder Maltreatment Screen: <Negative, No Follow-Up Plan Required> [[id number]]
[2018-02-06] MEDS: PANTOPRAZOLE SODIUM IV 40 MG VIAL IVP SCH (10:32)
[2018-02-06] MEDS ORDERED: PANTOPRAZOLE SODIUM 40 MG TABLET PO SCH (11:00)
[2018-02-06] MEDS: ACETAMINOPHEN 325 MG TAB PO PRN (11:23)
--- NOTE | 2018-02-06 21:09 | CT SCAN REPORT ---
EXAM: CT SCAN CHEST WO CONTRAST HISTORY: CHEST PAIN AND LUNG MASS. TECHNIQUE: Axial CT scan of the chest performed without IV contrast. COMPARISON: Chest CT 03/25/14. Chest x-ray 02/03/18. FINDINGS: On the prior CT, there was an approximately 3.5 x 1.8 cm somewhat spiculated juxtapleural density in the posterior basal segment of the right lower lobe at the level of the right hemidiaphragm. There is now considerable new opacity in the right lower lobe and the right lower lobe bronchus is not clearly seen extending into this and is probably obstructed. Evaluation somewhat limited without IV contrast and the parenchymal consolidation could be a combination of infiltrate and atelectasis but, with the apparent obstruction of the right lower lobe bronchus as well, malignancy is certainly not excluded. There is a new small right pleural effusion as well. Follow-up bronchoscopy suggested. Apical pleural thickening bilaterally. Some scattered interstitial infiltrate, probably representing fibrosis. Small focal area of consolidation in the right middle lobe anterolaterally is new and is nonspecific. There is likely underlying centrilobular emphysema present. Limited evaluation of the mediastinum without IV contrast with some mildly prominent mediastinal nodes similar to before but no definite progressive mediastinal adenopathy seen. Coronary artery calcification is present. Heart size is normal. No left pleural effusion evident. Note is made of moderate distention of the mid to lower esophagus with fluid. This is nonspecific although it can be seen with gastroesophageal reflux. IMPRESSION: 1. CONSIDERABLE PROGRESSIVE OPACITY IN THE RIGHT LOWER LOBE COMPARED WITH 03/25/14, NONSPECIFIC BUT MALIGNANCY CANNOT BE EXCLUDED. THERE IS PROBABLY ASSOCIATED OBSTRUCTION OF THE RIGHT LOWER LOBE BRONCHUS. BRONCHOSCOPY IS SUGGESTED. 2. UNDERLYING CENTRILOBULAR EMPHYSEMA AND SOME SCATTERED FIBROSIS IN THE LUNGS. VERY SMALL PATCH OF INFILTRATE IN THE RIGHT MIDDLE LOBE LATERALLY WELL. 3. CORONARY ARTERY CALCIFICATION AGAIN EVIDENT. 4. SOME PERSISTENT, MILDLY PROMINENT MEDIASTINAL NODES ALTHOUGH NO DEFINITE PROGRESSIVE ADENOPATHY IN THE MEDIASTINUM EVIDENT. 5. SOME FLUID DISTENTION OF THE MID TO LOWER ESOPHAGUS IS NONSPECIFIC ALTHOUGH MAY BE RELATED TO GASTROESOPHAGEAL REFLUX. JOB NUMBER: [id number] [facility]
--- NOTE | 2018-02-06 21:28 | CT SCAN REPORT ---
EXAM: CT SCAN ABDOMEN/PELVIS WO CONTRAST HISTORY: RIGHT-SIDED ABDOMINAL PAIN. TECHNIQUE: Axial CT scan of the abdomen and pelvis performed without oral or IV contrast at the referring physician's request. COMPARISON: CT abdomen and pelvis performed two days ago on 02/03/18. FINDINGS: Prominent opacification in the right lower lobe appearing essentially unchanged from two days ago. Small patch of infiltrate in the right middle lobe also essentially unchanged. Basilar fibrosis, particular in the left with some honeycombing as before. No definite intrarenal calculi seen on either side or hydronephrosis. Ureters are very difficult to follow in their course throughout the retroperitoneum and pelvis but no definite ureteral calculus or bladder calculus identified. No calcified gallstones seen within the gallbladder. Exam is again extremely limited by the lack of oral and IV contrast as well as the patient's thin body habitus, as previously noted. Probable cyst in the liver, as previously noted. The patient is post-op appendectomy by history, as indicated on the prior CT history sheet and the appendix is not identified consistent with this history. Given the limitations with lack of contrast, no definite new hepatic mass seen and no definite splenic, adrenal, pancreatic, or renal mass evident. No abdominal aortic aneurysm evident. 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 This was noted previously as well. Prominent stool in much of the colon with some mild progressive gaseous distention of the colon compared to the prior study. The splenic flexure measures up to about 5.3 cm in diameter and the cecum measures up to about 6 cm in diameter. No definite free intraperitoneal air identified. Extensive degenerative changes in the spine noted, as before. IMPRESSION: 1. COMPARED TO THE PRIOR CT PERFORMED TWO DAYS AGO, THERE APPEARS TO BE SLIGHT PROGRESSIVE DISTENTION OF THE COLON BY A COMBINATION OF STOOL AND AIR. THE SIGNIFICANCE OF THIS IS UNCERTAIN. 2. OTHERWISE, LITTLE APPRECIABLE CHANGE FROM TWO DAYS AGO, WITH NUMEROUS FINDINGS AGAIN NOTED PREVIOUSLY REPORTED. STUDY AGAIN IS EXTREMELY LIMITED BY THE LACK OF ORAL AND IV CONTRAST WELL THIN BODY HABITUS. [facility]BER: [id number] [facility]
== END 2018-02-06 13:30 | disposition home or self-care (01) ==
LOC: ER 07:07 → MEDSURG 14:35
PROVIDERS: ADMIT Internal Medicine; ATTEND Internal Medicine
DX: E86.0 Dehydration (principal); K92.2 Gastrointestinal hemorrhage, unspecified; I95.89 Other hypotension; R91.8 Other nonspecific abnormal finding of lung field; I25.2 Old myocardial infarction; Z87.891 Personal history of nicotine dependence; Z66 Do not resuscitate
CPT/HCPCS: 71250; 74176; 80048; 80053; 81001; 83690; 83735; 84484; 85014; 85018; 85025; 85610; 85730; 93005; 93010; 96365; 96366; 96374; 99217; 99220; 99285; C9113; J3411; J7030